=== PATIENT | female | born 1980 | race Caucasian/White ===

== ENCOUNTER 2020-09-01 12:00 | Emergency (ER) | payer SELFPAY ==
[~2020-09-01] VITALS: Ht 162.6 cm; Wt 60.0 kg
[2020-09-01] MEDS: LORAZEPAM 0.5MG TABLET PO ONE (12:23)
[2020-09-01 13:51] VITALS: BP 134/78
== END 2020-09-01 13:52 | disposition home or self-care (01) ==
LOC: EDBD 12:00 → ER 12:00
DX: Z13.9 Encounter for screening, unspecified (principal); I10 Essential (primary) hypertension; Z86.73 Personal history of transient ischemic attack (TIA), and cerebral infarction without residual deficits
CPT/HCPCS: 70360; 71045; 93005; 99284